=== PATIENT | female | born 1995 | race Caucasian/White ===

== ENCOUNTER → 2018-11-19 | Outpatient (CLI) | payer OTHER ==
--- NOTE | 2018-11-22 14:04 | RADIOLOGY IMAGING REPORT ---
FACILITY: [facility] PATIENT NAME: OLAYINKA BAKER : [id number] MR: [id number]: [id number] EXAM DATE: ORDERING PHYSICIAN: JAKOB CASTELLON TECHNOLOGIST: Milan Booth RDMS, STEPHEN PROCEDURE:US LEFT BREAST COMPARISON:None. INDICATIONS:2 O'CLOCK LEFT BREAST LUMP AREAS SCANNED: 1-2:30 position of the Left breast. FINDINGS: In the 1:30 position of the Left breast in location of patient's palpable finding is a 6 x 3 x 5mm ovoid well circumscribed hypoechoic nodule. This nodule is wider than tall. There is no acoustic shadowing. This may simply represent a small intramammary lymph node or possibly a small fibroadenoma clinical follow-up recommended. DIAGNOSTIC CATEGORY 2--BENIGN FINDING. RECOMMENDATIONS: CLINICAL EVALUATION. IMPRESSION: BIRADS 2: Benign finding. Well circumscribed ovoid hypoechoic nodule in the 1:30 position of the Left breast likely accounts for patient's palpable finding. This may represent a small intramammary lymph node or possibly a fibroadenoma. Clinical follow-up recommended for patient's palpable finding. Dictated by: Shayla Oakley M.D. on 11/19/2018 at 10:42 Transcribed by: [email or web address] on 11/22/2018 at 11:08 Approved by: Shayla Oakley M.D. on 11/22/2018 at 14:03 [facility]
== END ==
LOC: MAMO 08:43
PROVIDERS: ATTEND Physician Assistant
DX: N63.21 Unspecified lump in the left breast, upper outer quadrant (principal)